=== PATIENT | female | born 2000 | race Two or more races ===

== ENCOUNTER 2020-07-07 12:15 | Inpatient (IN) | payer OTHER ==
[~2020-07-07] VITALS: Ht 177.8 cm; Wt 61.2 kg
[2020-07-09] MEDS ORDERED: LEVORA-28 TABL1 EACH (07:48)
[2020-07-09] MEDS ORDERED: DICLOFENAC SODI75 MG (07:49)
== END 2020-07-10 11:57 | disposition home or self-care (01) | DRG 743 ==
LOC: O/R 07-09 05:00 → OB/GYN 07-09 07:00
PROVIDERS: ADMIT Specialist; ATTEND Specialist
PROC: 0UC Female Reproductive System, Extirpation (ICD-10-PCS; 2020-07-09)
PROC: 0UN64ZZ Release Left Fallopian Tube, Percutaneous Endoscopic Approach (ICD-10-PCS; 2020-07-09)
PROC: 0DNW4ZZ Release Peritoneum, Percutaneous Endoscopic Approach (ICD-10-PCS; 2020-07-09)
PROC: 0DBW4ZX Excision of Peritoneum, Percutaneous Endoscopic Approach, Diagnostic (ICD-10-PCS; 2020-07-09)
PROC: 0UB14ZX Excision of Left Ovary, Percutaneous Endoscopic Approach, Diagnostic (ICD-10-PCS; principal; 2020-07-09 07:00)
DX: N80.1 Endometriosis of ovary (principal); N80.3 Endometriosis of pelvic peritoneum